=== PATIENT | male | born 1995 | race Two or more races ===

== ENCOUNTER 2022-02-21 11:21 | Emergency (ER) | payer SELFPAY ==
[~2022-02-21] VITALS: Ht 177.8 cm; Wt 58.0 kg
[2022-02-21] MEDS ORDERED: AZITHROMYCIN 250 MG TAB PO ONE (13:00)
[2022-02-21] MEDS ORDERED: cefTRIAXone SOD 1,000 MG VL IM ONE (13:00)
[2022-02-21] MEDS ORDERED: cefTRIAXone SOD 500 MG VL IM ONE (13:15)
[2022-02-21 13:37] VITALS: BP 127/80
== END 2022-02-21 13:48 | disposition home or self-care (01) ==
LOC: ER 11:21
DX: A64 Unspecified sexually transmitted disease (principal); F17.210 Nicotine dependence, cigarettes, uncomplicated
CPT/HCPCS: 96372; 99283; J0696